=== PATIENT | female | born 2000 | race Two or more races ===

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

== ENCOUNTER 2022-11-24 04:45 | Emergency (ER) | payer BC, MEDICAID, SELFPAY ==
[2022-11-24 04:58] VITALS: BP 116/76; PULSE 92; RESP 16; TEMP 36.8; O2SAT 100; BMI 24.6
[2022-11-24 05:13] LABS: Appearance Urine Turbid; Color Urine RED; Glucose Urine UA Negative (Negative); Leukocyte Esterase Urine Large (3+) (Negative); Nitrite Urine Positive (Negative); PH 5.5 (5.0-9.0); Specific Gravity - Urine 1.025 (1.005-1.025); UMIC TRIGGER UACC YES; Urine Blood Large (3+) (Negative); Urine Ketones 40 mg/dL (Negative); Urine Protein 300 (3+) mg/dL (Neg-Trace)
[2022-11-24 05:15] LABS: UPreg QC Valid YES; Urine Pregnancy NEGATIVE (NEGATIVE)
[2022-11-24 05:27] LABS: Bacteria Urine 1+ (None Seen); Hyaline Casts Urine 0-2 /LPF (0-2); RBC Urine >20 /HPF (0-2); Squamous Epithelial Cell Urine 0-2 /HPF (0-2); UACC Culture Trigger YES; WBC Urine >50 /HPF (0-5)
--- OUTSIDE RECORDS SUMMARY | 2022-11-24 05:32 | XMS_ITS | Continuity of Care Document ---
Author Name Unknown Organization [facility] Address [address] [place] [address]- Care Team Providers Care Tie Carrier Name Role Phone Miko Pope MD Primary Care Physician [phone] Encounter [facility] [place] Date(s): 11/19/21 - 11/26/21 [facility] [address] [place] [address]- Attending Physician: Sixto Arriaga MD, V Referring Physician: Adriane Abdi MD Immunizations Given and Recorded Vaccine Date Status Refusal Reason SARS-CoV-2 (COVID-19) mRNA BNT-162b2 vac 08/15/20 Given SARS-CoV-2 (COVID-19) mRNA BNT-162b2 vac 07/25/20 Given Medications Famotidine 0 Refills, Maintenance, 11/19/21 13:38:00 EDT, Partial fill upon patient request if the prescription is for a schedule II opioid drug. Start Date: 11/19/21 Status: Ordered Loratadine By Mouth, Daily, Refills 0, Maintenance, 11/19/21 13:39:00 EDT, Partial fill upon patient request if the prescription is for a schedule II opioid drug. Start Date: 11/19/21 Status: Ordered Omeprazole By Mouth, Daily, 0 Refills, Maintenance, 11/19/21 13:39:00 EDT, Partial fill upon patient request if the prescription is for a schedule II opioid drug. Start Date: 11/19/21 Status: Ordered Pantoprazole Daily, 0 Refills, Maintenance, 11/19/21 13:39:00 EDT Start Date: 11/19/21 Status: Ordered Vitamin D 51789 iu oral capsule 50,000 International_Units, By Mouth, Every week, Refills 0, Maintenance, 11/19/21 13:38:00 EDT, Partial fill upon patient request if the prescription is for a schedule II opioid drug. Start Date: 11/19/21 Status: Ordered Problem List Condition Effective Dates Status Health Status Inform ant Anemia(Confirmed) Active Bruises easily(Confirmed) Active Environmental allergies(Confirmed) Active Rash(Confirmed) Active Vital Signs Most recent to oldest [Reference Range]: 1 Weight 61 kg (11/19/21 1:35 PM) Dry Weight 61 kg (11/19/21 1:35 PM) Weight Obtained Via Standing scale (11/19/21 1:35 PM) Dry Weight Obtained Via Standing scale (11/19/21 1:35 PM) Care Team Personnel Name: Miko Pope MD Address: [address] [place] [address]
--- OUTSIDE RECORDS SUMMARY | 2022-11-24 05:32 | XMS_ITS | Continuity of Care Document ---
Author Name Unknown Organization [facility] Address [address] [place] [address]- Care Team Providers Care Statistical Financial Analyst Name Role Phone Miko Pope MD Primary Care Physician Encounter [facility] [place] Date(s): 11/19/21 - 12/19/21 [facility] [address] [place] [address]- Attending Physician: Milagro Bass Admitting Physician: [id number] Referring Physician: Admtr [id number] Immunizations Given and Recorded Vaccine Date Status [...] Start Date: 11/19/21 Status: Ordered Vitamin D 06914 iu oral capsule 50,000 International_Units, By Mouth, Every week, Refills 0, Maintenance, 11/19/21 13:38:00 EDT, Partial fill upon patient request if the prescription is for a schedule II opioid drug. Start Date: 11/19/21 Status: Ordered Problem List Condition Effective Dates Status Health Status Inform ant Anemia(Confirmed) Active Bruises easily(Confirmed) Active Environmental allergies(Confirmed) Active Rash(Confirmed) Active Care Team Personnel Name: Miko Pope MD Address: [address] [place] [address]
--- NOTE | 2022-11-24 06:01 | ED_ITS ---
HPI - Female Genitourinary General Chief complaint: Urogenital-Female Stated complaint: Pain when urinating Time Seen by Provider: 11/24/22 06:01 Source: patient Mode of arrival: ambulatory Limitations: no limitations History of Present Illness HPI Narrative: Patient complaining of frequency dysuria suprapubic pain for last 24 hours no history of UTI in the past no history of kidney stones B 3 weeks ago no vaginal discharge no nausea no vomiting no fever Related Data Previous Rx's Medication Instructions Recorded cholecalciferol (vitamin D3) 50 50 mcg PO DAILY #90 caps 08/21/21 mcg (2,000 unit) capsule famotidine 20 mg tablet (Pepcid) 20 mg PO BEDTIME #90 tabs 11/13/21 pantoprazole 40 mg tablet,delayed 40 mg PO DAILY #90 tabs 11/13/21 release cefuroxime axetil 250 mg tablet 250 mg PO BID 7 days #14 tabs 11/24/22 phenazopyridine 200 mg tablet 200 mg PO TID 2 days #6 tabs 11/24/22 (Pyridium) Allergies Allergy/AdvReac Type Severity Reaction Status Date / Time No Known Allergies Allergy Verified 11/24/22 04:58 [No Known Allergies*] Review of Systems Review of Systems: Yes all other systems are reviewed and are negative [facility] Past Medical History Surgical History History of ear surgery Hx of tonsillectomy Family History Family History Father High blood pressure Maternal Grandmother High blood pressure Diabetes Other History of ear surgery Social History Social History Household Members: Family Alcohol intake: never Patient Tobacco Use Status: Never used Tobacco Advance Directives: No Advance Directives Information Provided: Yes Physical Exam Vital Signs: Vital Signs: Last Vital Signs Temp 98.3 F 11/24/22 04:58 Pulse 92 11/24/22 04:58 Resp 16 11/24/22 04:58 BP 116/76 11/24/22 04:58 Pulse Ox 100 11/24/22 04:58 O2 Del Method Room Air 11/24/22 04:58 BMI result Body Mass Index 24.6 Appearance: Alert. Oriented X3. No acute distress. ENT: Pharynx normal. Oral Mucosa moist Neck: Normal inspection. Neck supple. CVS: Normal heart rate and rhythm. Pulses normal. Abdomen: Soft and nontender. Bowel sounds are present, no mass palpable, no CVA tenderness Skin: Skin warm and dry. Normal skin color. Normal skin turgor. Extremities: No lower extremity edema. No calf tenderness Neuro: Oriented X 3. No motor deficit. Medications Administered Discontinued Medications Generic Name Dose Route Start Last Admin Trade Name Huyq PRN Reason Stop Dose Admin Cefuroxime Axetil 250 mg 11/24/22 06:01 11/24/22 06:47 Cefuroxime Axetil 250 Mg Tablet PO 11/24/22 06:02 250 mg ONCE ONE Administration Phenazopyridine HCl 200 mg 11/24/22 06:01 11/24/22 06:47 Phenazopyridine Hcl 200 Mg Tablet PO 11/24/22 06:02 200 mg ONCE ONE Administration Medical Decision Making Medical Decision Making [facility] Narrative: Patient with uncomplicated UTI will discharge patient on Ceftin and Pyridium Differential Diagnosis Differential Diagnoses: The differential diagnosis associated with the presentation includes Cystitis/kidney stone/pyelonephritis Lab Data [facility] Lab Attestation statement: I reviewed the patient's lab results. Labs: Lab Results 11/24/22 11/24/22 Range/Units 05:08 05:08 Urine Color RED Urine Appearance Turbid Urine pH 5.5 (5.0-9.0) Ur Specific [place] 1.025 (1.005-1.025) Urine Protein 300 (3+) H (Neg-Trace) mg/dL Urine Glucose (UA) Negative (Negative) mg/dL Urine Ketones 40 (Negative) mg/dL Urine Blood Large (3+) H (Negative) Urine Nitrite Positive H (Negative) Ur Leukocyte Esterase Large (3+) H (Negative) Urine RBC >20 H (0-2) /HPF Urine WBC >50 H (0-5) /HPF Ur Squamous Epith Cells 0-2 (0-2) /HPF Urine Bacteria 1+ (None Seen) Hyaline Casts 0-2 (0-2) /LPF Urine Test NEGATIVE (NEGATIVE) Discharge Plan Discharge Clinical Impression: Urinary tract infection Patient Disposition: Home, Self-Care Instructions: Urinary Tract Infection in Women (ED) Additional Instructions: Drink plenty of fluids Antibiotic as prescribed Take Pyridium for pain Follow-up with your PCP Report to the ER if flank pain/high-grade fever/vomiting Prescriptions: New phenazopyridine [Pyridium] 200 mg tablet 200 mg PO TID 2 Days Qty: 6 0RF cefuroxime axetil 250 mg tablet 250 mg PO BID 7 Days Qty: 14 0RF No Action cholecalciferol (vitamin D3) 50 mcg (2,000 unit) capsule 50 mcg PO DAILY Qty: 90 3RF pantoprazole 40 mg tablet,delayed release (DR/EC) 40 mg PO DAILY Qty: 90 2RF Rx Instructions: take one tablet half an hour before breakfast famotidine [Pepcid] 20 mg tablet 20 mg PO BEDTIME Qty: 90 2RF Discharge Date/Time: 11/24/22 06:45
[2022-11-24] MEDS: Phenazopyridine HCL 200 MG TABLET PO (06:47)
== END 2022-11-24 06:45 | disposition home or self-care (01) ==
PROVIDERS: Emergency Provider Internal Medicine; PCP Pediatrics
DX: N39.0 Urinary tract infection, site not specified (principal); R30.0 Dysuria; R35.0 Frequency of micturition; Z79.899 Other long term (current) drug therapy
CPT/HCPCS: 81001; 81025; 87086; 87088; 87186; 99283